=== PATIENT | female | born 1935 | race Caucasian/White ===

== ENCOUNTER → 2017-05-07 | Outpatient (CLI) | payer MEDICARE, BC ==
[~2017-05-07] MED LIST: /LABE20TA; /WARF25TA; ACET65TA; AMLO5TAB; DIOV160T5; LISI2.5T; MULTIVIT; PERC5TAB8; POTA10CA2; PRAV40TA; VITAMIN E; amlodipine; lisinopril
--- NOTE | 2017-05-07 15:21 | REP ---
LEFT FOOT, FOUR VIEWS: HISTORY: Sprain. There is no acute fracture or dislocation. There is narrowing of the tarsometatarsal , 1st metatarsophalangeal, 2nd through 5th intermediate and 1st through 5th distal interphalangeal joint spaces. Osteophytes are present on the inferior and posterior calcaneus. The bony structure is osteopenic. IMPRESSION: Degenerative change as described above. Signed by Albert Ingram MD 05/07/2017 03:22 P
== END ==
LOC: M WUC 10:56
PROVIDERS: ATTEND Physician Assistant
DX: S93.602A Unspecified sprain of left foot, initial encounter (principal); M85.872 Other specified disorders of bone density and structure, left ankle and foot; M19.072 Primary osteoarthritis, left ankle and foot; X58.XXXA Exposure to other specified factors, initial encounter; Y92.89 Other specified places as the place of occurrence of the external cause

== ENCOUNTER 2020-01-26 17:07 | Inpatient (IN) | payer MEDICARE, BC ==
[~2020-01-26] VITALS: Ht 162.6 cm; Wt 91.5 kg
[~2020-01-26 17:07] MED LIST changes: -/LABE20TA; -/WARF25TA; +COUM1TAB18; +LABE1TAB11
[2020-01-26] MEDS ORDERED: XARE20TA (17:42)
[2020-01-26] MEDS ORDERED: LOSA100T5 (17:42)
[2020-01-26] MEDS ORDERED: FURO20TA2 (17:42)
[2020-01-26 18:06] LABS: BASO # 0.1 10^3/uL (0.0-0.2); BASO % 0.7 % (0.0-1.0); EOS # 0.2 10^3/uL (0.0-0.5); EOS % 1.5 % (0.0-3.0); HEMATOCRIT 41.7 % (36.0-47.0); HEMOGLOBIN 13.7 g/dl (12.0-15.5); LYMPH # 1.3 10^3/uL (1.5-5.0); LYMPH % 11.4 % (24.0-44.0); MEAN CORPUSCULAR HGB CONC 32.9 g/dl (32.0-36.5); MEAN CORPUSCULAR VOLUME 88.2 fl (80.0-96.0); MONO # 1.1 10^3/uL (0.0-0.8); MONO % 9.4 % (0.0-5.0); NEUTROPHILS # 8.7 10^3/uL (1.5-8.5); NEUTROPHILS % 76.6 % (36.0-66.0); PLATELET COUNT, AUTOMATED 260 10^3/uL (150-450); RED BLOOD COUNT 4.73 10^6/uL (4.00-5.40); WHITE BLOOD COUNT 11.4 10^3/uL (4.0-10.0)
--- NOTE | 2020-01-26 18:23 | REP ---
Clinical: Cough and dyspnea. Comparison: 02/20/2015. Findings: Examination is limited by portable technique along with underpenetration and positioning. Mediastinum and cardiac silhouette are stable. Chronic interstitial changes versus interstitial edema along with bibasilar atelectasis/infiltrates suggested. No definite effusion. No pneumothorax. Skeletal structures stable with arthritic changes to the bilateral shoulders and thoracic spine noted. Impression: Chronic interstitial changes versus interstitial edema. Subtle bibasilar atelectasis/infiltrates suggested. Electronically Signed by Berlin Madera MD 01/26/2020 06:14 P
[2020-01-26 18:40] LABS: ALBUMIN 3.4 GM/DL (3.2-5.2); BILIRUBIN,DIRECT 0.5 MG/DL (0.0-0.2); BILIRUBIN,TOTAL 2.5 MG/DL (0.2-1.0); CALCIUM LEVEL 9.2 MG/DL (8.8-10.2); CK-MB VALUE MASS 2.3 NG/ML (<3.6); CREATININE FOR GFR 1.04 MG/DL (0.55-1.30); GLOMERULAR FILTRATION RATE 53.5 (>32); MB/CK RELATIVE INDEX 1.31 (< OR =4); POTASSIUM SERUM 3.9 MEQ/L (3.5-5.1); THYROID STIMULATING HORMONE 2.34 uIU/ML (0.358-3.740); TOTAL PROTEIN 6.7 GM/DL (6.4-8.2); TROPONIN I 0.02 NG/ML (< 0.10)
[2020-01-26] MEDS ORDERED: FUROSEMIDE 40MG/4ML VIAL (J1940) IV ONE (18:45)
[2020-01-26] MEDS ORDERED: ISOVUE-370 76% 100ML VIAL As Ordered ONE (18:49)
--- NOTE | 2020-01-26 19:25 | REPVR ---
PROCEDURE INFORMATION: Exam: CT Head Without Contrast Exam date and time: 01/26/2020 7:01 PM Age: 84 years old Clinical indication: Altered mental status/memory loss; Confusion or disorientation TECHNIQUE: Imaging protocol: Computed tomography of the head without contrast. Radiation optimization: All CT scans at this facility use at least one of these dose optimization techniques: automated exposure control; mA and/or kV adjustment per patient size (includes targeted exams where dose is matched to clinical indication); or iterative reconstruction. COMPARISON: No relevant prior studies available. FINDINGS: Brain: The brain demonstrates diffuse volume loss. There is white matter hypodensity most consistent with chronic small vessel ischemic change. No visible evolving territorial infarct. No hemorrhage. Ventricles: The ventricles appear mildly enlarged in keeping with volume loss. Bones/joints: Unremarkable. No acute fracture. Sinuses: Visualized sinuses are unremarkable. No fluid levels. Mastoid air cells: Visualized mastoid air cells are well aerated. Auditory system: There is material in the left external auditory canal which presumably represents cerumen. Orbits: Thinning of the lenses of the globes consistent with prior lens surgery. Soft tissues: Unremarkable. IMPRESSION: No acute intracranial abnormality seen. Electronically signed by: Wendy Ross On 01/26/2020 19:25:20 PM
--- NOTE | 2020-01-26 19:36 | REPVR ---
PROCEDURE INFORMATION: Exam: CT Angiography Chest With Contrast Exam date and time: 01/26/2020 7:01 PM Age: 84 years old Clinical indication: Shortness of breath; Additional info: SOB TECHNIQUE: Imaging protocol: Computed tomographic angiography of the chest with intravenous contrast. 3D rendering: MIP and/or 3D reconstructed images were created by the technologist. Radiation optimization: All CT scans at this facility use at least one of these dose optimization techniques: automated exposure control; mA and/or kV adjustment per patient size (includes targeted exams where dose is matched to clinical indication); or iterative reconstruction. Contrast material: ISOVUE 370; Contrast volume: 75 ml; Contrast route: IV; COMPARISON: CR PORTABLE CHEST X-RAY 01/26/2020 5:56 PM FINDINGS: Pulmonary arteries: Normal. No pulmonary emboli. Aorta: Unremarkable. No aortic aneurysm. No aortic dissection. Lungs: Subsegmental atelectasis noted in the right upper lobe and the right lower lobe subsegmental atelectasis present within the lingula. Mosaic perfusion abnormality noted in both lungs. Pleural space: There are small bilateral pleural effusions. Heart: There is coronary artery calcification. Mild cardiomegaly. No pericardial effusion. Gallbladder and bile ducts: There are large (up to 5 cm) lamellated gallstones are present within the gallbladder. Lymph nodes: Unremarkable. No enlarged lymph nodes. Bones/joints: Degenerative changes noted within the dorsal spine. Advanced degenerative changes of both glenohumeral joints. Soft tissues: There is eventration of the right hemidiaphragm . Stomach: There is a small sliding hiatal hernia. IMPRESSION: 1. No acute pulmonary embolism. 2. Bilateral subsegmental atelectasis with small bilateral pleural effusions. 3. Mosaic perfusion abnormality noted bilaterally. Differential diagnostic considerations include chronic veno-occlusive disease, bronchiolitis and air trapping. Clinical correlation needed. 4. Gallstones. Electronically signed by: Sakina Miranda On 01/26/2020 19:36:32 PM
--- NOTE | 2020-01-26 20:02 | REPVR ---
PROCEDURE INFORMATION: Exam: CT Abdomen And Pelvis With Contrast Exam date and time: 01/26/2020 7:13 PM Age: 84 years old Clinical indication: Abdominal pain; Generalized; Additional info: Abd pain TECHNIQUE: Imaging protocol: Computed tomography of the abdomen and pelvis with intravenous contrast. Radiation optimization: All CT scans at this facility use at least one of these dose optimization techniques: automated exposure control; mA and/or kV adjustment per patient size (includes targeted exams where dose is matched to clinical indication); or iterative reconstruction. Contrast material: ISOVUE 370; Contrast volume: 75 ml; Contrast route: IV; COMPARISON: No relevant prior studies available. FINDINGS: Motion artifact degrades image quality. Pleural space: There are small bilateral pleural effusions. Lungs: Hypoventilatory changes left lung base. Subsegmental atelectesis right lower lobe. Heart: There is mitral valvular calcification. Mediastinum: There is a small sliding hiatal hernia. Liver: Normal. No mass. Gallbladder and bile ducts: Large lamellated gallstones are present (maximum diameter = 5.2 cm) . Pancreas: Mild stranding peripancreatic fat.. Spleen: Normal. No splenomegaly. Adrenals: Normal. No mass. Kidneys and ureters: solid mass lower pole left kidney measuring 4.8 by 3 by 3.6 cm. Right kidney is malrotated. Stomach and bowel: There are sigmoid colonic diverticula. Appendix: Not well seen. Intraperitoneal space: Unremarkable. No free air. No significant fluid collection. Vasculature: There is coronary artery calcification. There is aortic annular and valvular calcification. Lymph nodes: Unremarkable. No enlarged lymph nodes. Bladder: Unremarkable as visualized. Reproductive: The uterus is absent. Bones/joints: Advanced degenerative disc disease within the thoracic and the lumbar spine. Underlying levoscoliosis of the lumbar spine. Soft tissues: Infraumbilical midline anterior abdominal wall hernia containing fat and small bowel loops. No signs of strangulation. There is mild stranding of the subcutaneous fat of the anterior abdominal wall. There is a midline abdominal wall incision. Well-circumscribed Rounded mass measuring 1.5 centimetres in the left labia majora could represent a chronic sebaceous cyst. Hyperdense rim suggests calcifications. Other findings: There is eventration of the right hemidiaphragm. IMPRESSION: 1. Motion artifact degrades image quality in the upper abdomen. 2. Mild stranding of peripancreatic fat. This could be related to motion. Pancreatitis is another consideration. Correlate with serum chemistries. 3. Left renal cell carcinoma. 4. Gallstones in the gallbladder. 5. Scattered sigmoid colonic diverticula. Six. Infraumbilical midline abdominal hernia could be incisional in nature. Small bowel loops and a small amount of ascites present within the hernia sac. No bowel obstruction. Electronically signed by: Sakina Miranda On 01/26/2020 20:02:39 PM
[2020-01-26] MEDS ORDERED: FURO20TA2 PO (20:57)
[2020-01-26] MEDS ORDERED: AMLO5TAB6 PO (20:57)
[2020-01-26] MEDS ORDERED: LABE200T32 PO (20:57)
[2020-01-26] MEDS ORDERED: LOSA100T5 PO (20:57)
[2020-01-26] MEDS ORDERED: POTA10TA14 PO (20:57)
[2020-01-26] MEDS ORDERED: XARE20TA PO (20:57)
[2020-01-26] MEDS: POTASSIUM CHLORIDE 10 MEQ SR TABLET PO SCH (22:25)
[2020-01-26] MEDS: RIVAROXABAN 20 MG TAB (XARELTO) PO SCH (22:29)
[2020-01-26] MEDS: LABETALOL 200 MG TAB PO SCH (22:29)
[2020-01-26 22:50] VITALS: BP 156/78
[2020-01-27] VITALS (17 sets, daily range): BP systolic 135–238; BP diastolic 60–92; O2SAT 86–93
[2020-01-27] MEDS: FUROSEMIDE 40MG/4ML VIAL (J1940) IV SCH ×3 (00:12→16:00)
--- NOTE | 2020-01-27 01:18 | ECGEPIP ---
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
[2020-01-27 06:39] LABS: TROPONIN I < 0.02 NG/ML (< 0.10)
--- NOTE | 2020-01-27 06:40 | HPEPDOC ---
[facility] Medical History & Physical Date of Admission Jan 26, 2020 Date of Service: Jan 26, 2020 History and Physical CHIEF COMPLAINT: Shortness breath and dyspnea on exertion for the last 3 weeks HISTORY OF PRESENT ILLNESS: This is a 84-year-old female presenting today for dyspnea on exertion and shortness of breath for the last 3 weeks. She was brought in via private vehicle with her son. She states for the last 3 weeks she's been increasing shortness of breath with daily tasks around the house. She's noticed increased lower extremity edema bilaterally in her legs which improves with elevation. She does note taking Lasix 3 times a week and has noticed a decrease in urine output in the last couple of weeks. She is unsure if she's had any weight gain. She admits to sleeping with one pillow at night but no paroxysmal nocturnal dyspnea or orthopnea. Patient states she is compliant with all her medications. She does endorse 24 hours prior to presentation she did have a presyncopal fall resulting in a head trauma with no loss of consciousness. She denies any headaches, vertigo, dizziness now or at the time of the episode. She does know feeling slightly woozy prior to landing on her knees and hitting her head She does endorse that she was unable to get up and had to scoot to her phone in the living room on the floor. She denies any nausea, vomiting, diarrhea. Endorses chronic constipation is relieved with [id number] stool softeners. She has no other complaints at this time. And the only reason she came to the ER was per the recommendation of her PCP after a telephone visit. PAST MEDICAL HISTORY: 1. Atrial fibrillation on anticoagulation currently rate controlled 2. Hypertension 3. Congestive heart failure 4. Chronic constipation HOME MEDICATIONS: Please see below. ALLERGIES: Please see below PAST SURGICAL HISTORY: 1. Hysterectomy 2. Knee arthroplasty on the right 3. 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 ETOH: Denies, Illicit drug use: Denies, CODE STATUS: DNR/DNI FAMILY HISTORY:Reviewed and noncontributory REVIEW OF SYSTEMS: 10 systems reviewed. Constitutional: Denies fever, chills, night sweats, Admits to weight loss HEENT: Denies headache, dysphagia endorses presyncopal lightheadedness episode 24 hours prior 1 Skin: Denies any rashes or lesions admits to bruising on the left lateral chest wall secondary to fall from yesterday. Denies any other skin breakdown sites. Pulmonary: Denies cough, wheezing . Endorses dyspnea on exertion Cardiac: Denies chest pain, palpitations, orthopnea, PND, admits to lower extremity edema GI: Denies nausea, vomiting, abdominal pain, diarrhea, melena, hematochezia endorses chronic constipation : Denies dysuria, hematuria, retention MSK: Denies new pains or weakness Neurologic: Denies new numbness/tingling PHYSICAL EXAMINATION: VITAL SIGNS: See below GENERAL: Pleasant 84 year old female sitting up in bed awake alert oriented speaking in 6-8 words complete sentences without no respiratory distress HEENT: Atraumatic, normocephalic, pupils equal round and reactive, moist mucous membranes, jugular vein not pronounced measure at 5 mm. CARDIOVASCULAR: Distant heart sounds no audible murmurs noted.S1-S2 sounds are present. Irregularly irregular rate controlled. On telemetry A. fib with rate of 60 bpm. CHEST: Healing bruise appreciated on left lateral chest wall. No hematoma. Mild discomfort with deep palpation. RESPIRATORY: Clear to auscultate in the upper lobes. Dullness to percussion bilaterally at the bases. Decreased tactile fremitus as well as diaphragmatic excursion. ABDOMINAL: Positive bowel sounds in all 4 quadrants. Soft obese abdomen. Tenderness to palpation. EXTREMITIES: 2+ pitting edema bilaterally in the lower extremities with tenderness. NEUROLOGICAL: no gross focal deficits appreciated. Alert and oriented 3 appropriate answering questions. PSYCHOLOGICAL: Appropriate LABORATORY DATA: See below. MICROBIOLOGY: Please see below. IMAGIN01/26/2020 Chest x-ray Impression: Chronic interstitial changes versus interstitial edema. Subtle bibasilar atelectasis/infiltrates suggested. Head CT IMPRESSION: No acute intracranial abnormality seen. CT angios the chest IMPRESSION: 1. No acute pulmonary embolism. 2. Bilateral subsegmental atelectasis with small bilateral pleural effusions. 3. Mosaic perfusion abnormality noted bilaterally. Differential diagnostic considerations include chronic veno-occlusive disease, bronchiolitis and air trapping. Clinical correlation needed. 4. Large Gallstones. Abdominal pelvic CT with contrast IMPRESSION: 1. Motion artifact degrades image quality in the upper abdomen. 2. Mild stranding of peripancreatic fat. This could be related to motion. Pancreatitis is another consideration. Correlate with serum chemistries. 3. Left renal cell carcinoma. 4. Gallstones in the gallbladder. 5. Scattered sigmoid colonic diverticula. 6. Infraumbilical midline abdominal hernia could be incisional in nature. Small bowel loops and a small amount of ascites present within the hernia sac. ASSESSMENT & PLAN: This is a 64-year-old female with a pertinent past medical history of atrial fibrillation rate controlled on anticoagulation, congestive heart failure, stenting in for shortness of breath and dyspnea on exertion for the last 3 weeks.. PROBLEMS: 1. Shortness of breath secondary to congestive heart failure exacerbation. States has a history of congestive heart failure. Sees Dr. Santamaria outpatient. Last echocardiogram was greater than 3 years ago. Clinically appears fluid overloaded with Dullness to percussion at the bases bilaterally, and 2+ pitting edema bilateral lower extremities. ProBNP elevated at 3197. Tolerated Lasix 40 mg 1 in ER very well. Ordered 40 mg Lasix every 8 hours, with net fluid of 2000cc IN 24 HOURS and 2.5L Fluids restriction. Monitor potassium and magnesium levels. Repeat echocardiogram today. EKG in the ER shows atrial fibrillation. No ST abnormalities. Trop 2 negative. 2. Control atrial fibrillation. Rate 65 bpm. ChadVacs Score: >2, continue with home Xarelto and labetalol as prescribed with hold parameters. 3. New Left renal cell carcinoma. Seen CT of the abdomen and pelvis.Patient does not have a history of carcinoma. Will need to have further workup with MRI with and without contrast for further evaluation. Need to consider urology consult following MRI for possible nephrectomy inpatient versus outpatient. 4. Large Cholelithiasis. Abnormal CT angios of the chest, which showed 5 cm lamellated gallstones while CT of the angiogram of the abdomen did show Mild stranding of peripancreatic fat. A nelson denies any right upper quadrant pain. Total bilirubin slightly elevated at 2.5 and direct bilirubin at 0.5. We'll tr end early levels. AST ALT levels are within normal limits. We'll monitor. If no complaints can continue to monitor and consider outpatient surgery referral for cholecystectomy 5. Presyncope resulting in a fall and on Xarelto. Denies loss of consciousness. CT of the head was negative for any acute intracranial processes. Orthostatics 1 ordered. Currently fluid overloaded and just of heart failure exacerbation so we'll monitor. PT OT ordered and advised to ambulate with assistance while admitted. No obvious neurological deficits noted on exam today. Monitor for mentation changes. 6. Hypertension. Continue with home amlodipine, hydrochlorothiazide, and losartan as prescribed with hold parameters. 7. Abnormal EKG. Q waves on v1-3. no st changes and normal tropx2. Patient states that she had a LCH 3 years prior which was negative. Echo ordered for problem 1. will see if there is wall motion abnormalities. 8. Obesity complicates care. DVT PROPHYLAXIS: Xarelto DISPOSITION: Admit to PCU with telemetry for at least 2 midnight. Vital Signs Vital Signs Date Time Temp Pulse Resp B/P (MAP) Pulse Ox O2 Delivery O2 Flow Rate FiO2 01/26/20 22:50 98.3 71 16 156/78 (104) 90 Nasal Cannula 2.0 Laboratory Data Labs 24H Laboratory Tests 2 01/26/20 17:52: Immature Granulocyte % (Auto) 0.4, Neutrophils (%) (Auto) 76.6H, Lymphocytes (%) (Auto) 11.4L, Monocytes (%) (Auto) 9.4H, Eosinophils (%) (Auto) 1.5, Basophils (%) (Auto) 0.7, Neutrophils # (Auto) 8.7H, Lymphocytes # (Auto) 1.3L, Monocytes # (Auto) 1.1H, Eosinophils # (Auto) 0.2, Basophils # (Auto) 0.1, Nucleated Red Blood Cells % (auto) 0.0, Anion Gap 7L, Glomerular Filtration Rate 53.5, Calcium Level 9.2, Magnesium Level 2.0, Total Bilirubin 2.5H, Direct Bilirubin 0.5H, Aspartate Amino Transf (AST/SGOT) 15, Alanine Aminotransferase (ALT/SGPT) 17, Alkaline Phosphatase 73, Total Creatine Kinase 176, Creatine Kinase MB 2.3, Creatine Kinase MB Relative Index 1.31, Troponin I 0.02, LL-Wes-X-Type Natriuretic Peptide 3197H, Total Protein 6.7, Albumin 3.4, Albumin/Globulin Ratio 1.03, Thyroid Stimulating Hormone (TSH) 2.340 01/26/20 19:46: Urine Color COLORLESS, Urine Appearance CLEAR, Urine pH 7.0, Urine Specific [place] 1.009, Urine Protein NEGATIVE, Urine Glucose (UA) NEGATIVE, Urine Ketones NEGATIVE, Urine Blood NEGATIVE, Urine Nitrite NEGATIVE, Urine Bilirubin NEGATIVE, Urine Urobilinogen 0.2, Urine Leukocyte Esterase NEGATIVE, Urine WBC (Auto) 0, Urine RBC (Auto) 0, Urine Hyaline Casts (Auto) 0, Urine Bacteria (Auto) 1+H, Urine Squamous Epithelial Cells 0, Urine Sperm (Auto) 01/27/20 00:01: Troponin I 0.02 CBC/BMP Laboratory Tests 01/26/20 17:52 Microbiology Microbiology 01/26/20 Blood Culture, Received Pending 01/26/20 Respiratory Virus Panel (PCR) (PENG) - Final, Complete 01/26/20 Blood Culture, Received Pending Home Medications Scheduled Amlodipine Besylate (Amlodipine Besylate) 5 Mg Tablet, 5 MG PO DAILY Furosemide (Furosemide) 20 Mg Tablet, 20 MG PO 3XW MON, WED, FRI Labetalol HCl (Labetalol HCl) 200 Mg Tablet, 400 MG PO BID Losartan/Hydrochlorothiazide (Losartan-Hctz 100-25 mg Tab) 1 Each Tablet, 1 TAB PO DAILY Potassium Chloride (Potassium Chloride) 10 Meq Tablet.er, 10 MEQ PO BID Rivaroxaban (Xarelto) 20 Mg Tablet, 20 MG PO QHS Allergies Coded Allergies: No Known Allergies (Unverified , 01/26/20) GME ATTESTATION GME ATTESTATION My faculty preceptor for this patient encounter was physically present during the encounter and was fully available. All aspects of the patient interview, examination, medical decision making process, and medical care plan development were reviewed and approved by the faculty preceptor. The faculty preceptor is aware and concurs with the plan as stated in the body of this note and will attest to such by his/her cosignature. ATTENDING NOTE I, Gabriel Parson, have independently examined this patient and performed my own physical exam, as well as reviewed the documentation and edited where necessary. I have discussed in detail with the resident / student the findings and plan of treatment as documented by the resident / student and edited their note. I agree with their findings and treatment plan and have edited their documentation. I will continue to follow the patient during this hospital stay. ZULMA LEMONS DO Jan 27, 2020 06:40 GABRIEL PARSON MD Jan 29, 2020 05:03
[2020-01-27 07:24] LABS: MAGNESIUM LEVEL 1.7 MG/DL (1.8-2.4)
[2020-01-27 07:29] LABS: HEMATOCRIT 40.6 % (36.0-47.0); HEMOGLOBIN 13.9 g/dl (12.0-15.5); MEAN CORPUSCULAR HEMOGLOBIN 29.9 pg (27.0-33.0); MEAN CORPUSCULAR HGB CONC 34.2 g/dl (32.0-36.5); MEAN CORPUSCULAR VOLUME 87.3 fl (80.0-96.0); PLATELET COUNT, AUTOMATED 284 10^3/uL (150-450); RED BLOOD COUNT 4.65 10^6/uL (4.00-5.40); WHITE BLOOD COUNT 12.5 10^3/uL (4.0-10.0)
[2020-01-27] MEDS: LABETALOL 200 MG TAB PO SCH ×2 (08:44→20:34)
[2020-01-27] MEDS: LOSARTAN 50 MG TAB PO SCH (08:45)
[2020-01-27] MEDS: POTASSIUM CHLORIDE 10 MEQ SR TABLET PO SCH ×2 (08:45→20:33)
[2020-01-27] MEDS: amLODIPine 5 MG TAB PO SCH (08:45)
[2020-01-27] MEDS: hydroCHLOROthiazide 25 MG TAB PO SCH (08:46)
[2020-01-27] MEDS: SENOKOT S TAB PO SCH (08:46)
[2020-01-27] MEDS ORDERED: MAG SULF 1GM/100ML (MAG RUN) 1 GM in IV 1 EA IV ONE (10:00)
[2020-01-27] MEDS ORDERED: PROHANCE 279.3MG/ML 15ML VIAL As Ordered ONE (11:38)
--- NOTE | 2020-01-27 14:15 | IPNPDOC ---
Text Note Date of Service The patient was seen on 01/27/20. NOTE Subjective: -Sitting up in chair, on supplemental O2 -Discussed CT findings of renal mass for which she has an MRI this afternoon -Feels better than she did yesterday, has been having lots of urine output since being started on diuretics VITAL SIGNS: See below GENERAL: Sitting up in bed awake alert oriented x 3, NAD HEENT: NCAT, PERRLA, EOMI, MMM CARDIOVASCULAR: Irregularly irregular rhythm, rate wnl TELEMETRY: A. fib with rate of 60 bpm. CHEST: Previously noted bruise appreciated on left lateral chest wall, mild pain with palpation. RESPIRATORY: Diminished bilateral bases, clear upper lobes, no wheezing or rhonchi ABDOMINAL: Normoactive bowel sounds, soft, obese, mild TTP throughout EXTREMITIES: 2+ pitting edema bilaterally in the lower extremities to knees. Non tender. WWP. NEUROLOGICAL: no gross focal deficits appreciated. Alert and oriented 3 appropriate answering questions. PSYCH: Appropriate, AOx3 LABORATORY DATA: Mag 1.7 na 133 K 3.9 Cr 1.04 WBC 12.5 Hgb 13.9 platelets 284 MICROBIOLOGY: Please see below. IMAGIN01/26/2020 Chest x-ray: Chronic interstitial changes versus interstitial edema. Subtle bibasilar atelectasis/infiltrates suggested. Head CT: No acute intracranial abnormality seen. Chest CTA: 1. No acute pulmonary embolism. 2. Bilateral subsegmental atelectasis with small bilateral pleural effusions. 3. Mosaic perfusion abnormality noted bilaterally. Differential diagnostic considerations include chronic veno-occlusive disease, bronchiolitis and air trapping. Clinical correlation needed. 4. Large Gallstones. Abdominal pelvic CT with contrast 1. Motion artifact degrades image quality in the upper abdomen. 2. Mild stranding of peripancreatic fat. This could be related to motion. Pancreatitis is another consideration. Correlate with serum chemistries. 3. Left renal cell carcinoma. 4. Gallstones in the gallbladder. 5. Scattered sigmoid colonic diverticula. 6. Infraumbilical midline abdominal hernia could be incisional in nature. Small bowel loops and a small amount of ascites present within the hernia sac. ASSESSMENT: 64-year-old W with atrial fibrillation on chronic rate control and anticoagulation, congestive heart failure unclear subtype, CAD s/p stenting now admitted with LOONEY of three weeks with evidence of volume overload. Plan Shortness of breath secondary to congestive heart failure exacerbation, unclear subtype at this time. - States has a history of congestive heart failure. Sees Dr. Santamaria outpatient. -Last echocardiogram was greater than 3 years ago. -Clinically appears fluid overloaded and has elevated proBNP at 3197. -Continue lasix every 8 hours, with net fluid of 2000cc IN 24 HOURS and 1.5L Fluids restriction. -Strict I/Os and daily weights -Monitor potassium and magnesium levels. -TTE pending. -EKG showed atrial fibrillation without ST abnormalities and trops were negative 2 Atrial fibrillation: Rate controlled -Rate 65 bpm. -continue with home Xarelto and labetalol as prescribed with hold parameters. Newly noted L renal mass, incidentally found on CT. -No history of renal CA --> admission team ordered MRI with and without contrast for further evaluation. -Will need urology referral Incidentally noted large Cholelithiasis: -Imaging showed 5 cm lamellated gallstones with stranding of peripancreatic fat, with total bilirubin slightly elevated at 2.5 and direct bilirubin at 0.5 and normal AST ALT levels. - Will monitor. - If no complaints can continue to monitor and consider outpatient surgery referral for cholecystectomy Presyncope resulting in a fall and on Xarelto. -Denies loss of consciousness. -CT of the head was negative for any acute intracranial processes. -Orthostatics were negative -No obvious neurological deficits noted on exam today -PT OT ordered Hypertension. -Continue with home amlodipine, hydrochlorothiazide, and losartan as prescribed with hold parameters. Abnormal EKG: Q waves on v1-[address] changes and normal tropx2. -Patient states that she had a LHC 3 years prior which was negative. -TTE pending for wall motion abnormalities. Obesity complicates care. DVT PROPHYLAXIS: Xarelto DISPOSITION: Admit to PCU with telemetry with ongoing IV diuresis VS,Fishbone, I+O VS, Fishbone, I+O Laboratory Tests 01/26/20 17:52 01/27/20 05:57 Vital Signs Date Time Temp Pulse Resp B/P (MAP) Pulse Ox O2 Delivery O2 Flow Rate FiO2 01/27/20 08:45 162/70 01/27/20 08:45 64 01/27/20 08:00 98.8 18 92 Nasal Cannula 2.0 I&O- Last 24 Hours up to 6 AM 01/27/20 05:59 Intake Total 0 ml Output Total 1850 ml Balance -1850 ml ANALILIA PHILIP MD Jan 27, 2020 09:20
--- NOTE | 2020-01-27 14:32 | REP ---
MRI KIDNEYS WITH AND WITHOUT CONTRAST: COMPARISON CT 01/26/2020. Multiple sequences obtained in the axial and coronal planes prior to and following the intravenous administration of 9 mL ProHance. In the lower pole of the left kidney, there is a heterogeneously enhancing solid mass which measures 4.5 x 3.2 x 3.0 cm consistent with renal cell carcinoma. No other renal mass is seen bilaterally. 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 There is no hydronephrosis bilaterally. I see no evidence of renal vein thrombosis. Abdominal aorta is normal in caliber. There is no periaortic adenopathy. No free fluid is seen in the visualized abdomen. Note is made of multiple gallstones filling the gallbladder, which does not appear to be inflamed. The visualized portions of the liver, spleen, adrenals, and pancreas are unremarkable. IMPRESSION: Solid heterogeneously enhancing mass lower pole left kidney most consistent with renal cell carcinoma measuring 4.5 x 3.2 x 3.0 cm. In the visualized abdomen, there is no evidence of lymphadenopathy. There is no evidence of renal vein thrombosis. No other renal mass is seen. Cholelithiasis. Electronically Signed by Tyler Beasley MD 01/27/2020 02:46 P
--- NOTE | 2020-01-27 19:36 | ECHO ---
DATE OF PROCEDURE: 01/27/2020 DATE OF : 1935 AGE: 84 REFERRING PROVIDER: Dr. Tri Joseph REASON FOR STUDY: Heart failure, unspecified. 2D MEASUREMENTS: IVS: 1.2 cm LV: 4.3 cm LVPW: 1.2 cm LA: 4.3 cm Aorta: 3.0 cm RV: 2.7 cm DOPPLER MEASUREMENTS: Peak velocity across the aortic valve: 1.5 meters second Peak velocity across the LVOT: 0.82 meters per second Mitral E: 1.5 Maximum tricuspid valve velocity: 4.0 meters per second. 2D COMMENTS: 1. Normal left ventricular size, wall thickness, and normal global left ventricular systolic function. The estimated left ventricular systolic ejection fraction is 60-65%. 2. Mildly enlarged left atrium. The right atrium appeared to be moderately enlarged. The right ventricle in limited views appeared to be mildly enlarged. The right ventricular free wall was not well visualized and may be hypokinetic. 3. The atrial septum appeared to be normal without evidence of defect or shunt. 4. Normal aortic root. 5. Trace pericardial effusion noted, no evidence of cardiac tamponade. 6. Mildly calcified aortic valve with normal leaflet excursion. Mildly calcified mitral annulus with normal anterior mitral valve leaflet motion. Normal tricuspid valve and pulmonic valve. The proximal pulmonary artery branches were not well visualized. 7. The inferior vena cava was dilated, central venous pressure might be elevated. DOPPLER: It detects trace aortic regurgitation, mild mitral regurgitation, moderate tricuspid regurgitation. The calculated pulmonary artery systolic pressure varies between 70 and 80 mmHg. Assessment of the left ventricular diastolic function was limited, the patient seems to have underlying atrial fibrillation. IMPRESSION: 1. Normal global left ventricular systolic function. Assessment of the left ventricular diastolic function was limited. 2. Aortic valve sclerosis with trace aortic regurgitation, but no aortic stenosis. 3. Mitral annulus calcification with mild mitral regurgitation and a mildly enlarged left atrium at 4.3 cm. 4. Moderate tricuspid regurgitation with severe pulmonary hypertension. The right heart chambers appeared to be enlarged. There is probably right ventricular systolic dysfunction. 5. There are features of elevated central venous pressure, the inferior vena cava was dilated. 6. Trace pericardial effusion. MTDD
[2020-01-27] MEDS: RIVAROXABAN 20 MG TAB (XARELTO) PO SCH (20:31)
[2020-01-28] VITALS (12 sets, daily range): BP systolic 112–168; BP diastolic 52–74; O2SAT 92–96
[2020-01-28] MEDS: FUROSEMIDE 40MG/4ML VIAL (J1940) IV SCH ×4 (00:13→23:30)
[2020-01-28 04:51] LABS: HEMATOCRIT 41.4 % (36.0-47.0); HEMOGLOBIN 13.9 g/dl (12.0-15.5); MEAN CORPUSCULAR HGB CONC 33.6 g/dl (32.0-36.5); MEAN CORPUSCULAR VOLUME 86.4 fl (80.0-96.0); PLATELET COUNT, AUTOMATED 276 10^3/uL (150-450); RED BLOOD COUNT 4.79 10^6/uL (4.00-5.40); WHITE BLOOD COUNT 11.8 10^3/uL (4.0-10.0)
[2020-01-28 05:31] LABS: ALBUMIN 3.3 GM/DL (3.2-5.2); BILIRUBIN,TOTAL 2.7 MG/DL (0.2-1.0); CREATININE FOR GFR 0.97 MG/DL (0.55-1.30); MAGNESIUM LEVEL 1.9 MG/DL (1.8-2.4); TOTAL PROTEIN 6.5 GM/DL (6.4-8.2)
[2020-01-28] MEDS ORDERED: POTASSIUM CHLORIDE 10 MEQ SR TABLET PO ONE ×3 (06:45→08:15)
[2020-01-28] MEDS: hydroCHLOROthiazide 25 MG TAB PO SCH (08:49)
[2020-01-28] MEDS: SENOKOT S TAB PO SCH (08:49)
[2020-01-28] MEDS: LOSARTAN 50 MG TAB PO SCH (08:49)
[2020-01-28] MEDS: amLODIPine 5 MG TAB PO SCH (08:49)
[2020-01-28] MEDS: LABETALOL 200 MG TAB PO SCH ×2 (08:51→20:17)
[2020-01-28] MEDS: POTASSIUM CHLORIDE 10 MEQ SR TABLET PO SCH ×2 (10:52→20:15)
[2020-01-28] MEDS ORDERED: SLF 3 ML SYR IV PRN (11:45)
--- NOTE | 2020-01-28 14:37 | IPNPDOC ---
Text Note Date of Service The patient was seen on 01/28/20. NOTE Subjective: -Sitting up in chair, on supplemental O2, now down to 2L -Discussed MRI findings of renal mass and told her that I will be calling urology today for their thoughts on inpatient evaluation vs. close follow up in the outpatient setting for discussion of further evaluation and treatment options -Feels ok, continues to have robust urine output. VITAL SIGNS: See below GENERAL: Sitting up in bed awake alert oriented x 3, NAD HEENT: NCAT, PERRLA, EOMI, MMM CARDIOVASCULAR: Irregularly irregular rhythm, rate wnl TELEMETRY: A. fib with rate of 60 bpm. RESPIRATORY: Continues to have diminished sounds at the bases with trace crackles, clear upper lobes, no wheezing or rhonchi ABDOMINAL: Normoactive bowel sounds, soft, obese, mild TTP throughout EXTREMITIES: 2+ pitting edema bilaterally in the lower extremities to midshins. Non tender. WWP. NEUROLOGICAL: no gross focal deficits appreciated. Alert and oriented 3 appropriate answering questions. PSYCH: Appropriate, AOx3 Labs: WBC11.8 Hgb 13.9 platelets 276 na 134 K 3 (repleted) Cr 0.97 mag 1.9 proBNP 3284 BCx - NGTD resp viral panel - negative TTE 1. Normal left ventricular size, wall thickness, and normal global left ventricular systolic function. The estimated left ventricular systolic ejection fraction is 60-65%. 2. Mildly enlarged left atrium. The right atrium appeared to be moderately enlarged. The right ventricle in limited views appeared to be mildly enlarged. The right ventricular free wall was not well visualized and may be hypokinetic. 3. The atrial septum appeared to be normal without evidence of defect or shunt. 4. Normal aortic root. 5. Trace pericardial effusion noted, no evidence of cardiac tamponade. 6. Mildly calcified aortic valve with normal leaflet excursion. Mildly calcified mitral annulus with normal anterior mitral valve leaflet motion. Normal tricuspid valve and pulmonic valve. The proximal pulmonary artery branches were not well visualized. 7. The inferior vena cava was dilated, central venous pressure might be elevated. DOPPLER: It detects trace aortic regurgitation, mild mitral regurgitation, moderate tricuspid regurgitation. The calculated pulmonary artery systolic pressure varies between 70 and 80 mmHg. Assessment of the left ventricular di astolic function was limited, the patient seems to have underlying atrial fibrillation. IMPRESSION: 1. Normal global left ventricular systolic function. Assessment of the left ventricular diastolic function was limited. 2. Aortic valve sclerosis with trace aortic regurgitation, but no aortic st enosis. 3. Mitral annulus calcification with mild mitral regurgitation and a mildly enlarged left atrium at 4.3 cm. 4. Moderate tricuspid regurgitation with severe pulmonary hypertension. The right heart chambers appeared to be enlarged. There is probably right ventricular systolic dysfunction. 5. There are features of elevated central venous pressure, the inferior venacava was dilated. 6. Trace pericardial effusion. MRI KIDNEYS WITH AND WITHOUT CONTRAST: COMPARISON CT 01/26/2020. In the lower pole of the left kidney, there is a heterogeneously enhancing solid mass which measures 4.5 x 3.2 x 3.0 cm consistent with renal cell carcinoma. No other renal mass is seen bilaterally. 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 There is no hydronephrosis bilaterally. I see no evidence of renal vein thrombosis. Abdominal aorta is normal in caliber. There is no periaortic adenopathy. No free fluid is seen in the visualized abdomen. Note is made of multiple gallstones filling the gallbladder, which does not appear to be inflamed. The visualized portions of the liver, spleen, adrenals, and pancreas are unremarkable. IMPRESSION: Solid heterogeneously enhancing mass lower pole left kidney most consistent with renal cell carcinoma measuring 4.5 x 3.2 x 3.0 cm. In the visualized abdomen, there is no evidence of lymphadenopathy. There is no evidence of renal vein thrombosis. No other renal mass is seen. Cholelithiasis. ASSESSMENT: 64-year-old W with atrial fibrillation on chronic rate control and anticoagulation, HFpEF, pulmonary hypertension, CAD s/p stenting now admitted with LOONEY of three weeks with evidence of volume overload. Plan Shortness of breath secondary to congestive heart failure exacerbation, with TTE showing preserved ejection fraction and significant pulmonary hypertension -Previously seen by Dr. Santamaria outpatient. -TTE as above, with preserved EF, significant pulm HTN and dilated RV with elevated CVP. -Clinically appears fluid overloaded and continues to have elevated proBNP -Continue lasix every 8 hours, with net fluid of 2000cc IN 24 HOURS and 1.5L Fluids restriction. -Strict I/Os and daily weights -Replete potassium and magnesium aggressively with ongoing diuresis -EKG showed atrial fibrillation without ST abnormalities and trops were negative 2 Chronic atrial fibrillation: Rate controlled -continue with home Xarelto and labetalol as prescribed with hold parameters. Newly noted L renal mass, incidentally found on CT. -No history of renal CA, mass on CT-->MRI showing solid mass c/f RCC --> Spoke with Dr. Seay in urology who will see her in clinic. Incidentally noted large Cholelithiasis: -Imaging showed 5 cm lamellated gallstones with stranding of peripancreatic fat, with total bilirubin stably elevated at 2.7 and direct bilirubin at 0.5 and normal AST ALT levels. - Will monitor. - No complaints, will continue to monitor and consider outpatient surgery referral for cholecystectomy Presyncope resulting in a fall and on Xarelto. -Denies loss of consciousness. -CT of the head was negative for any acute intracranial processes. -Orthostatics were negative -No obvious neurological deficits noted on exam today -with significant pulmonary HTN on TTE -PT OT ordered Hypertension. -Continue with home amlodipine, hydrochlorothiazide, and losartan as prescribed with hold parameters. -Also on labetalol with hold parameters Abnormal EKG: Q waves on v1-[address] changes and normal tropx2. -Patient states that she had a LHC 3 years prior which was negative. -TTE showing HFpEF with significant pulm HTN without WMA Obesity complicates care. DVT PROPHYLAXIS: Xarelto DISPOSITION: Ongoing diuresis in PCU with telemetry, still on supplemental O2, pending PT recs VS,Fishbone, I+O VS, Fishbone, I+O Laboratory Tests 01/28/20 04:31 Vital Signs Date Time Temp Pulse Resp B/P (MAP) Pulse Ox O2 Delivery O2 Flow Rate FiO2 01/28/20 06:00 96 Nasal Cannula 3.0 01/28/20 04:00 97.5 60 21 150/72 (98) I&O- Last 24 Hours up to 6 AM 01/28/20 06:00 Intake Total 700 ml Output Total 2450 ml Balance -1750 ml ANALILIA PHILIP MD Jan 28, 2020 07:46
[2020-01-28] MEDS: SLF 3 ML SYR IV SCH ×2 (16:03→20:15)
[2020-01-28] MEDS: RIVAROXABAN 20 MG TAB (XARELTO) PO SCH (20:15)
[2020-01-29] VITALS: BP 163/69
[2020-01-29 04:00] VITALS: BP 136/61
[2020-01-29] MEDS: SLF 3 ML SYR IV SCH ×3 (04:35→20:12)
[2020-01-29 05:11] LABS: HEMATOCRIT 41.8 % (36.0-47.0); HEMOGLOBIN 14.2 g/dl (12.0-15.5); MEAN CORPUSCULAR HEMOGLOBIN 29.8 pg (27.0-33.0); MEAN CORPUSCULAR VOLUME 87.8 fl (80.0-96.0); PLATELET COUNT, AUTOMATED 287 10^3/uL (150-450); RED BLOOD COUNT 4.76 10^6/uL (4.00-5.40); WHITE BLOOD COUNT 10.8 10^3/uL (4.0-10.0)
[2020-01-29 05:48] LABS: ALBUMIN 3.1 GM/DL (3.2-5.2); ALT/SGPT 21 U/L (12-78); BILIRUBIN,TOTAL 2.1 MG/DL (0.2-1.0); BLOOD UREA NITROGEN 20 MG/DL (7-18); CALCIUM LEVEL 8.8 MG/DL (8.8-10.2); CARBON DIOXIDE LEVEL 31 MEQ/L (21-32); CHLORIDE LEVEL 97 MEQ/L (98-107); CREATININE FOR GFR 0.94 MG/DL (0.55-1.30); GLOMERULAR FILTRATION RATE > 60.0 (>32); GLUCOSE, FASTING 104 MG/DL (70-100); MAGNESIUM LEVEL 1.8 MG/DL (1.8-2.4); POTASSIUM SERUM 2.9 MEQ/L (3.5-5.1); SODIUM LEVEL 136 MEQ/L (136-145); TOTAL PROTEIN 6.3 GM/DL (6.4-8.2)
[2020-01-29] MEDS ORDERED: POTASSIUM CHLORIDE 10 MEQ SR TABLET PO ONE (06:00)
[2020-01-29 08:00] VITALS: BP 150/70
[2020-01-29] MEDS: LABETALOL 200 MG TAB PO SCH ×2 (09:00→20:12)
[2020-01-29] MEDS: FUROSEMIDE 40MG/4ML VIAL (J1940) IV SCH (09:13)
[2020-01-29] MEDS: SENOKOT S TAB PO SCH (09:13)
[2020-01-29] MEDS: LOSARTAN 50 MG TAB PO SCH (09:14)
[2020-01-29] MEDS: hydroCHLOROthiazide 25 MG TAB PO SCH (09:14)
[2020-01-29] MEDS: POTASSIUM CHLORIDE 10 MEQ SR TABLET PO SCH ×2 (09:14→20:11)
[2020-01-29] MEDS: amLODIPine 5 MG TAB PO SCH (09:15)
--- NOTE | 2020-01-29 11:45 | IPNPDOC ---
Text Note Date of Service The patient was seen on 01/29/20. NOTE Subjective: -Sitting up in chair, on supplemental O2, however per nursing was saturating well on room air ambulating to the bathroom -Discussed that I spoke with urology and Dr. Seay will see her in the office for evaluation of her L renal mass -Otherwise no complaints at this time and continues to have robust urine output. VITAL SIGNS: See below GENERAL: Sitting up in chair, awake alert oriented x 3, NAD HEENT: NCAT, PERRLA, EOMI, MMM CARDIOVASCULAR: Irregularly irregular rhythm, rate wnl TELEMETRY: A. fib with rate of 60 bpm. RESPIRATORY: Continues to have diminished sounds at the bases with trace crackles, clear upper lobes, no wheezing or rhonchi ABDOMINAL: Normoactive bowel sounds, soft, obese, mild TTP throughout EXTREMITIES: 2+ pitting edema bilaterally in the lower extremities to midshins. Non tender. WWP. NEUROLOGICAL: no gross focal deficits appreciated. Alert and oriented 3 appropriate answering questions. PSYCH: Appropriate, AOx3 Labs: WBC 10.8 Hgb 14.2 platelets 287 na 136 K 2.9 (repleted) Cr 0.94 mag 1.8 BCx - NGTD resp viral panel - negative TTE 1. Normal left ventricular size, wall thickness, and normal global left ventricular systolic function. The estimated left ventricular systolic ejection fraction is 60-65%. 2. Mildly enlarged left atrium. The right atrium appeared to be moderately enlarged. The right ventricle in limited views appeared to be mildly enlarged. The right ventricular free wall was not well visualized and may be hypokinetic. 3. The atrial septum appeared to be normal without evidence of defect or shunt. 4. Normal aortic root. 5. Trace pericardial effusion noted, no evidence of cardiac tamponade. 6. Mildly calcified aortic valve with normal leaflet excursion. Mildly calcified mitral annulus with normal anterior mitral valve leaflet motion. Normal tricuspid valve and pulmonic valve. The proximal pulmonary artery branches were not well visualized. 7. The inferior vena cava was dilated, central venous pressure might be elevated. DOPPLER: It detects trace aortic regurgitation, mild mitral regurgitation, moderate tricuspid regurgitation. The calculated pulmonary artery systolic pressure varies between 70 and 80 mmHg. Assessment of the left ventricular diastolic function was limited, the patient seems to have underlying atrial fibrillation. IMPRESSION: 1. Normal global left ventricular systolic function. Assessment of the left ventricular diastolic function was limited. 2. Aortic valve sclerosis with trace aortic regurgitation, but no aortic stenosis. 3. Mitral annulus calcification with mild mitral regurgitation and a mildly enlarged left atrium at 4.3 cm. 4. Moderate tricuspid regurgitation with severe pulmonary hypertension. The right heart chambers appeared to be enlarged. There is probably right ventricular systolic dysfunction. 5. There are features of elevated central venous pressure, the inferior venacava was dilated. 6. Trace pericardial effusion. MRI KIDNEYS WITH AND WITHOUT CONTRAST: COMPARISON CT 01/26/2020. In the lower pole of the left kidney, there is a heterogeneously enhancing solid mass which measures 4.5 x 3.2 x 3.0 cm consistent with renal cell carcinoma. No other renal mass is seen bilaterally. 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 There is no hydronephrosis bilaterally. I see no evidence of renal vein thrombosis. Abdominal aorta is normal in caliber. There is no periaortic adenopathy. No free fluid is seen in the visualized abdomen. Note is made of multiple gallstones filling the gallbladder, which does not appear to be inflamed. The visualized portions of the liver, spleen, adrenals, and pancreas are unremarkable. IMPRESSION: Solid heterogeneously enhancing mass lower pole left kidney most consistent with renal cell carcinoma measuring 4.5 x 3.2 x 3.0 cm. In the visualized abdomen, there is no evidence of lymphadenopathy. There is no evidence of renal vein thrombosis. No other renal mass is seen. Cholelithiasis. ASSESSMENT: 64-year-old W with atrial fibrillation on chronic rate control and anticoagulation, HFpEF, pulmonary hypertension, CAD s/p PCI now admitted with LOONEY of three weeks with evidence of volume overload with steady improvement with ongoing IV diuresis. Plan Shortness of breath secondary to congestive heart failure exacerbation, with TTE showing preserved ejection fraction and significant pulmonary hypertension -Previously seen by Dr. Santamaria outpatient. -TTE as above, with preserved EF, significant pulm HTN and dilated RV with elevated CVP. -Clinically appears fluid overloaded and continues to have elevated proBNP -Discontinue lasix every 8 hours, will start 40 PO lasix daily starting tomorrow AM -goal net fluid of 2000cc IN 24 HOURS and 1.5L Fluids restriction. -Strict I/Os and daily weights -Replete potassium and magnesium aggressively with ongoing diuresis -EKG showed atrial fibrillation without ST abnormalities and trops were negative 2 -Hypoxemia is resolving --> if consistently on room air and saturating well with ambulation, may discharge home today Chronic atrial fibrillation: Rate controlled -continue with home Xarelto and labetalol as prescribed with hold parameters. Newly noted L renal mass, incidentally found on CT. -No history of renal CA, mass on CT-->MRI showing solid mass c/f RCC --> Spoke with Dr. Seay in urology who will see her in clinic Communicated this with her this AM. Incidentally noted large Cholelithiasis: -Imaging showed 5 cm lamellated gallstones with stranding of peripancreatic fat, with total bilirubin stably elevated at 2.7 and direct bilirubin at 0.5 and normal AST ALT levels. - Will monitor. - No complaints, will continue to monitor and consider outpatient surgery referral for cholecystectomy Presyncope resulting in a fall and on Xarelto. -Denies loss of consciousness. -CT of the head was negative for any acute intracranial processes. -Orthostatics were negative -No obvious neurological deficits noted on exam today -with significant pulmonary HTN on TTE -PT OT ordered Hypertension. -Continue with home amlodipine, hydrochlorothiazide, and losartan as prescribed with hold parameters. -Also on labetalol with hold parameters Abnormal EKG: Q waves on v1-[address] changes and normal tropx2. -Patient states that she had a LHC 3 years prior which was negative. -TTE showing HFpEF with significant pulm HTN without WMA Obesity complicates care. DVT PROPHYLAXIS: Xarelto DISPOSITION: Ongoing diuresis, trying to get her back to room air and if saturating well on room with ambulation, ,may end up discharging her home today after [facility] safety evaluation. VS,Fishbone, I+O VS, Fishbone, I+O Laboratory Tests 01/29/20 04:46 Vital Signs Date Time Temp Pulse Resp B/P (MAP) Pulse Ox O2 Delivery O2 Flow Rate FiO2 01/29/20 08:00 97.8 56 18 150/70 (96) 98 Nasal Cannula 2.0 I&O- Last 24 Hours up to 6 AM 01/29/20 06:00 Intake Total 570 ml Output Total 3650 ml Balance -3080 ml ANALILIA PHILIP MD Jan 29, 2020 09:18
[2020-01-29 12:00] VITALS: BP 129/58
[2020-01-29] MEDS ORDERED: FUROSEMIDE 40MG/4ML VIAL (J1940) IV ONE (15:00)
[2020-01-29 16:00] VITALS: BP 156/78
[2020-01-29 20:00] VITALS: BP 156/67
[2020-01-29] MEDS: RIVAROXABAN 20 MG TAB (XARELTO) PO SCH (20:12)
[2020-01-30] VITALS: BP 151/69
[2020-01-30 04:00] VITALS: BP 139/65
[2020-01-30 05:18] LABS: HEMATOCRIT 43.4 % (36.0-47.0); HEMOGLOBIN 14.2 g/dl (12.0-15.5); MEAN CORPUSCULAR HEMOGLOBIN 28.8 pg (27.0-33.0); MEAN CORPUSCULAR HGB CONC 32.7 g/dl (32.0-36.5); PLATELET COUNT, AUTOMATED 318 10^3/uL (150-450); RED BLOOD COUNT 4.93 10^6/uL (4.00-5.40); WHITE BLOOD COUNT 11.1 10^3/uL (4.0-10.0)
[2020-01-30 05:52] LABS: ALBUMIN 3.1 GM/DL (3.2-5.2); CALCIUM LEVEL 8.5 MG/DL (8.8-10.2); CREATININE FOR GFR 1.09 MG/DL (0.55-1.30); GLOMERULAR FILTRATION RATE 50.7 (>32); MAGNESIUM LEVEL 1.7 MG/DL (1.8-2.4); POTASSIUM SERUM 3.5 MEQ/L (3.5-5.1); TOTAL PROTEIN 6.3 GM/DL (6.4-8.2)
[2020-01-30] MEDS: SLF 3 ML SYR IV SCH (06:00)
[2020-01-30 08:26] VITALS: BP 156/70
[2020-01-30] MEDS ORDERED: FUROSEMIDE 40 MG TAB PO SCH (09:00)
[2020-01-30] MEDS: LABETALOL 200 MG TAB PO SCH (09:00)
[2020-01-30] MEDS ORDERED: FURO20TA2 PO (09:01)
[2020-01-30] MEDS ORDERED: LABE200T32 PO (09:01)
[2020-01-30 09:05] VITALS: BP 156/70
[2020-01-30] MEDS: POTASSIUM CHLORIDE 10 MEQ SR TABLET PO SCH (09:05)
[2020-01-30] MEDS: LOSARTAN 50 MG TAB PO SCH (09:05)
[2020-01-30] MEDS: SENOKOT S TAB PO SCH (09:06)
[2020-01-30] MEDS: amLODIPine 5 MG TAB PO SCH (09:06)
[2020-01-30] MEDS: hydroCHLOROthiazide 25 MG TAB PO SCH (09:06)
[2020-01-30] MEDS ORDERED: MIRA3350 PO (10:47)
--- NOTE | 2020-01-30 11:55 | DS.PDOC ---
Discharge Summary General Date of Admission Jan 26, 2020 at 21:07 Date of Discharge 01/30/2020 Attending Physician: ANALILIA PHILIP MD Discharge Summary PROCEDURES PERFORMED DURING STAY: None ADMITTING DIAGNOSES: 1. Acute on chronic HFpEF DISCHARGE DIAGNOSES: 1. Acute on chronic HFpEF 2. Chronic atrial fibrillation on anticoagulation currently rate controlled 3. Chronic essential hypertension COMPLICATIONS/CHIEF COMPLAINT: Short Of Breath. HISTORY OF PRESENT ILLNESS: 84-year-old W who presented to the ED with dyspnea on exertion and shortness of breath for 3 weeks, with associated increased lower extremity edema bilaterally in her legs. She reported having been compliant with her home Lasix 20 3 times a week and had noticed a decrease in urine output in the 2 weeks prior. She also reported presyncope with a fall 24 hours prior to presentation that resulted in head trauma with no loss of consciousness without any headaches, vertigo, dizziness. HOSPITAL COURSE: In the ED she was noted to be in javon volume overload with crackles and 2+ LE edema to the knees and hypoxemic requiring 3L of O2. She was admitted to the PCU for aggressive diuresis with IV lasix [id number] with a robust response and improvement in her volume status, weight loss and resolution of hypoxemia. Of note, EKG showed rate controlled Afib with ischemic signs and troponin was negative. A chest CTA revealed no acute PE and small bilateral pleural effusions. She had a TTE that showed her a preserved EF, significant pulm HTN and dilated RV with elevated CVP. Her crackles improved, LE significantly improved and her hypoxemia resolved. Her baseline diuretics were uptitrated from 20mg 3 times weekly to 40mg daily and she will have close PCP follow up for electrolytes check and volume check as well as cardiology follow up. Of note, while inpatient, she was incidentally found on CT imaging to have an asymptomatic large gallstone with normal LFTs, as well as newly noted L renal mass and had a follow up MRI that showed a solid L renal mass c/f RCC. I called urology who recommended following up with them in clinic for definitive diagnosis and discussion of management. Her renal function was otherwise wnl. With regard to her presyncopal fall, her CT head was wnl, orthostatics were negative and she had no neurological deficits noted. She cleared PT and passed a home safety check and is now being discharged home. Also of note, Ms. Jang was persistently rate controlled and borderline bradycardic such that her labetalol was held per hold parameters since 01/26. I have therefore reduced her dose from 400 BID to 200mg once daily to reduce risk of symptomatic bradycardia with close PCP and cardiology follow up. DISCHARGE MEDICATIONS: Please see below. ALLERGIES: Please see below. PHYSICAL EXAMINATION ON DISCHARGE: VITAL SIGNS: Please see below. GENERAL: Sitting up in chair, awake alert oriented x 3, NAD HEENT: NCAT, PERRLA, EOMI, MMM CARDIOVASCULAR: Irregularly irregular rhythm, rate wnl TELEMETRY: A. fib with rate of 60 bpm. RESPIRATORY: Continues to have diminished sounds at the bases with trace crackles, clear upper lobes, no wheezing or rhonchi ABDOMINAL: Normoactive bowel sounds, soft, obese, mild TTP throughout EXTREMITIES: 2+ pitting edema bilaterally in the lower extremities to midshins. Non tender. WWP. NEUROLOGICAL: no gross focal deficits appreciated. Alert and oriented 3 appropriate answering questions. PSYCH: Appropriate, AOx3 LABORATORY DATA: Please see below. IMAGING: No contrast head CT - no acute intracranial abnormality Chest CTA: 1. No acute pulmonary embolism. 2. Bilateral subsegmental atelectasis with small bilateral pleural effusions. 3. Mosaic perfusion abnormality noted bilaterally. Differential diagnostic considerations include chronic veno-occlusive disease, bronchiolitis and air trapping. Clinical correlation needed. 4. Gallstones. CT A/P with IV contrast: FINDINGS: Motion artifact degrades image quality. Pleural space: There are small bilateral pleural effusions. Lungs: Hypoventilatory changes left lung base. Subsegmental atelectesis right lower lobe. Heart: There is mitral valvular calcification. Mediastinum: There is a small sliding hiatal hernia. Liver: Normal. No mass. Gallbladder and bile ducts: Large lamellated gallstones are present (maximum diameter = 5.2 cm) . Pancreas: Mild stranding peripancreatic fat.. Spleen: Normal. No splenomegaly. Adrenals: Normal. No mass. Kidneys and ureters: solid mass lower pole left kidney measuring 4.8 by 3 by 3.6 cm. Right kidney is malrotated. Stomach and bowel: There are sigmoid colonic diverticula. Appendix: Not well seen. Intraperitoneal space: Unremarkable. No free air. No significant fluid collection. Vasculature: There is coronary artery calcification. There is aortic annular and valvular calcification. Lymph nodes: Unremarkable. No enlarged lymph nodes. Bladder: Unremarkable as visualized. Reproductive: The uterus is absent. Bones/joints: Advanced degenerative disc disease within the thoracic and the lumbar spine. Underlying levoscoliosis of the lumbar spine. Soft tissues: Infraumbilical midline anterior abdominal wall hernia containing fat and small bowel loops. No signs of strangulation. There is mild stranding of the subcutaneous fat of the anterior abdominal wall. There is a midline abdominal wall incision. Well-circumscribed Rounded mass measuring 1.5 centimetres in the left labia majora could represent a chronic sebaceous cyst. Hyperdense rim suggests calcifications. Other findings: There is eventration of the right hemidiaphragm. TTE 1. Normal left ventricular size, wall thickness, and normal global left ventricular systolic function. The estimated left ventricular systolic ejection fraction is 60-65%. 2. Mildly enlarged left atrium. The right atrium appeared to be moderately enlarged. The right ventricle in limited views appeared to be mildly enlarged. The right ventricular free wall was not well visualized and may be hypokinetic. 3. The atrial septum appeared to be normal without evidence of defect or shunt. 4. Normal aortic root. 5. Trace pericardial effusion noted, no evidence of cardiac tamponade. 6. Mildly calcified aortic valve with normal leaflet excursion. Mildly calcified mitral annulus with normal anterior mitral valve leaflet motion. Normal tricuspid valve and pulmonic valve. The proximal pulmonary artery branches were not well visualized. 7. The inferior vena cava was dilated, central venous pressure might be elevated. DOPPLER: It detects trace aortic regurgitation, mild mitral regurgitation, moderate tricuspid regurgitation. The calculated pulmonary artery systolic pressure varies between 70 and 80 mmHg. Assessment of the left ventricular diastolic function was limited, the patient seems to have underlying atrial fibrillation. IMPRESSION: 1. Normal global left ventricular systolic function. Assessment of the left ventricular diastolic function was limited. 2. Aortic valve sclerosis with trace aortic regurgitation, but no aortic stenosis. 3. Mitral annulus calcification with mild mitral regurgitation and a mildly enlarged left atrium at 4.3 cm. 4. Moderate tricuspid regurgitation with severe pulmonary hypertension. The right heart chambers appeared to be enlarged. There is probably right ventricular systolic dysfunction. 5. There are features of elevated central venous pressure, the inferior venacava was dilated. 6. Trace pericardial effusion. MRI KIDNEYS WITH AND WITHOUT CONTRAST: COMPARISON CT 01/26/2020. In the lower pole of the left kidney, there is a heterogeneously enhancing solid mass which measures 4.5 x 3.2 x 3.0 cm consistent with renal cell carcinoma. No other renal mass is seen bilaterally. 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 There is no hydronephrosis bilaterally. I see no evidence of renal vein thrombosis. Abdominal aorta is normal in caliber. There is no periaortic adenopathy. No free fluid is seen in the visualized abdomen. Note is made of multiple gallstones filling the gallbladder, which does not appear to be inflamed. The visualized portions of the liver, spleen, adrenals, and pancreas are unremarkable. IMPRESSION: Solid heterogeneously enhancing mass lower pole left kidney most consistent with renal cell carcinoma measuring 4.5 x 3.2 x 3.0 cm. In the visualized abdomen, there is no evidence of lymphadenopathy. There is no evidence of renal vein thr ombosis. No other renal mass is seen. Cholelithiasis. PROGNOSIS: Good with regard to HFpEF, with pending L renal mass evaluation ACTIVITY: As tolerated DIET: 2g sodium, 1.5L/24h fluid restriction DISCHARGE PLAN: Home with PCP and cardiology follow up, as well as urology referral DISPOSITION: home DISCHARGE INSTRUCTIONS: 1. Please start taking lasix 40mg daily. Followup with your PCP within the upcoming week and cardiology in 1-2 weeks. We are referring you for evaluation of the left renal mass by urology. ITEMS TO FOLLOWUP ON ON OUTPATIENT: 1. acute on chronic HFpEF 2. Le renal mass evaluation 3. Incidental asymptomatic large gallstone DISCHARGE CONDITION: Stable TIME SPENT ON DISCHARGE: 46 minutes. Vital Signs/I&Os Vital Signs Date Time Temp Pulse Resp B/P (MAP) Pulse Ox O2 Delivery O2 Flow Rate FiO2 01/30/20 08:26 97.3 60 17 156/70 (98) 91 01/30/20 04:00 Room Air 01/30/20 00:00 2.0 I&O- Last 24 Hours up to 6 AM 01/30/20 06:00 Intake Total 690 ml Output Total 2700 ml Balance -2010 ml Laboratory Data Labs 24H Laboratory Tests 2 01/30/20 04:35: Nucleated Red Blood Cells % (auto) 0.0, Anion Gap 8, Glomerular Filtration Rate 50.7, Calcium Level 8.5L, Magnesium Level 1.7L, Total Bilirubin 2.0H, Aspartate Amino Transf (AST/SGOT) 16, Alanine Aminotransferase (ALT/SGPT) 17, Alkaline Phosphatase 64, Total Protein 6.3L, Albumin 3.1L, Albumin/Globulin Ratio 0.97L CBC/BMP Laboratory Tests 01/30/20 04:35 Microbiology Microbiology 01/26/20 Blood Culture - Preliminary, Resulted No Growth after 72 hours. All specime... 01/26/20 Respiratory Virus Panel (PCR) (PENG) - Final, Complete 01/26/20 Blood Culture - Preliminary, Resulted No Growth after 72 hours. All specime... Discharge Medications Scheduled Amlodipine Besylate (Amlodipine Besylate) 5 Mg Tablet, 5 MG PO DAILY, (Reported) Furosemide (Furosemide) 20 Mg Tablet, 40 MG PO DAILY MON, WED, FRI Labetalol HCl (Labetalol HCl) 200 Mg Tablet, 200 MG PO DAILY Losartan/Hydrochlorothiazide (Losartan-Hctz 100-25 mg Tab) 1 Each Tablet, 1 TAB PO DAILY, (Reported) Polyethylene Glycol 3350 (Miralax) 119 Gm Powder, 17 GRAM PO DAILY for constipation dissolve in water Potassium Chloride (Potassium Chloride) 10 Meq Tablet.er, 10 MEQ PO BID, (Reported) Rivaroxaban (Xarelto) 20 Mg Tablet, 20 MG PO QHS, (Reported) Allergies Coded Allergies: No Known Allergies (Unverified , 01/26/20) ANALILIA PHILIP MD Jan 30, 2020 08:56
== END 2020-01-30 12:13 | disposition home or self-care (01) | DRG 292 ==
LOC: M ED 17:07 → M ED INP 21:07 → ENRESERV 21:37 → M PCU 22:50
PROVIDERS: ADMIT Internal Medicine; ATTEND Internal Medicine
DX: I11.0 Hypertensive heart disease with heart failure (principal); C64.2 Malignant neoplasm of left kidney, except renal pelvis; I48.20 Chronic atrial fibrillation, unspecified; I50.33 Acute on chronic diastolic (congestive) heart failure; K80.20 Calculus of gallbladder without cholecystitis without obstruction; Z79.01 Long term (current) use of anticoagulants; Z79.899 Other long term (current) drug therapy; K59.00 Constipation, unspecified; Z96.651 Presence of right artificial knee joint; E66.9 Obesity, unspecified

== ENCOUNTER 2021-03-20 18:06 | Emergency (ER) | payer MEDICARE, BC ==
[~2021-03-20 18:06] MED LIST changes: +AMLO1TAB24 PO; +FURO20TA2; +FURO20TA2 PO; +LABE200T32 PO; +LOSA100T5; +LOSA100T5 PO; +MIRA3350 PO; +POTA10TA14 PO; +XARE20TA; +XARE20TA PO
[2021-03-20] MEDS ORDERED: FURO40TA2 (18:18)
[2021-03-20] MEDS ORDERED: SPIR-10 (18:18)
--- NOTE | 2021-03-20 19:24 | REP ---
INDICATION: trauma COMPARISON: None. TECHNIQUE: Four views left shoulder. FINDINGS: There is a fracture of the neck of the humerus with mild displacement. Round 1.8 cm calcific body is seen along the fracture margin. Humeral head is in place in the glenoid fossa with moderate joint space narrowing and subchondral sclerosis. IMPRESSION: Displaced fracture neck of humerus. <Electronically signed by Tyler Beasley > 03/20/21 [id number]
--- NOTE | 2021-03-20 19:25 | REP ---
INDICATION: trauma COMPARISON: None. TECHNIQUE: AP and lateral left humerus. FINDINGS: There is a fracture of the neck of the humerus with mild displacement. Round 1.8 cm calcific body is seen along the fracture margin. Humeral head is in place in the glenoid fossa with moderate joint space narrowing and subchondral sclerosis. IMPRESSION: Displaced fracture neck of the humerus. <Electronically signed by Tyler Beasley > 03/20/21 192
--- NOTE | 2021-03-20 19:25 | REP ---
INDICATION: trauma COMPARISON: None. TECHNIQUE: Four views right knee. FINDINGS: There is no evidence of acute fracture, dislocation, or intrinsic bone disease.The prosthesis is in good position. IMPRESSION: No fracture or dislocation. <Electronically signed by Tyler Beasley > 03/20/211921
--- NOTE | 2021-03-20 19:39 | REPVR ---
PROCEDURE INFORMATION: Exam: CT Cervical Spine Without Contrast Exam date and time: 03/20/2021 6:45 PM Age: 85 years old Clinical indication: Injury or trauma; Fall; Blunt trauma TECHNIQUE: Imaging protocol: Computed tomography images of the cervical spine without contrast. Radiation optimization: All CT scans at this facility use at least one of these dose optimization techniques: automated exposure control; mA and/or kV adjustment per patient size (includes targeted exams where dose is matched to clinical indication); or iterative reconstruction. COMPARISON: No relevant prior studies available. FINDINGS: Bones/joints: Severe cervical facet arthropathy. There is slight grade 1 degenerative anterolisthesis of C2 on C3, C3 on C4 and C7 on T1. No acute fracture seen. Discs/Spinal canal/Neural foramina: Disc height loss and spondylosis from C3-C4 through C7-T1, in particular from C4-C5 through C6-C7. No severe central spinal canal stenosis. There are neural foraminal stenoses due to uncovertebral and facet arthropathy, in particular on the left at C3-C4. Severe degenerative changes at C1-C2. Lungs: Small visualized portion of the lung apices are unremarkable. Soft tissues: Unremarkable. IMPRESSION: 1. Limited study due to motion artifacts. 2. No obvious acute fracture. 3. If the patient is complaining of neck pain, recommend a repeat study. Electronically signed by: Wendy Ross On 03/20/2021 19:39:02 PM
--- NOTE | 2021-03-20 19:46 | REPVR ---
PROCEDURE INFORMATION: Exam: CT Head Without Contrast Exam date and time: 03/20/2021 6:45 PM Age: 85 years old Clinical indication: Injury or trauma; Fall; Blunt trauma (contusions or hematomas); Additional info: Trauma on thinners TECHNIQUE: Imaging protocol: Computed tomography of the head without contrast. Radiation optimization: All CT scans at this facility use at least one of these dose optimization techniques: automated exposure control; mA and/or kV adjustment per patient size (includes targeted exams where dose is matched to clinical indication); or iterative reconstruction. COMPARISON: CT Head without contrast 01/26/2020 6:56 PM FINDINGS: Brain: Images are slightly motion degraded. New anterior right parafalcine hyperdense subdural hemorrhage measures 2 mm in thickness. No mass effect. The brain demonstrates diffuse volume loss. There is white matter hypodensity most consistent with chronic small vessel ischemic change. No visible evolving territorial infarct. Cerebral ventricles: The ventricles are enlarged in keeping with volume loss. Paranasal sinuses: Visualized sinuses are unremarkable. No fluid levels. Mastoid air cells: Visualized mastoid air cells are well aerated. Orbital cavity: Thinning of the lenses of the globes consistent with prior lens surgery. Bones/joints: No acute calvarial fracture seen. Soft tissues: Left frontal scalp soft tissue swelling with hematoma. IMPRESSION: A trace amount of right anterior parafalcine subdural hemorrhage. Electronically signed by: Wendy Ross On 03/20/2021 19:46:02 PM
--- NOTE | 2021-03-20 19:51 | REPVR ---
PROCEDURE INFORMATION: Exam: CT Maxillofacial Without Contrast Exam date and time: 03/20/2021 6:45 PM Age: 85 years old Clinical indication: Injury or trauma; Fall; Blunt trauma (contusions or hematomas); Forehead TECHNIQUE: Imaging protocol: Computed tomography images of the face without contrast. Radiation optimization: All CT scans at this facility use at least one of these dose optimization techniques: automated exposure control; mA and/or kV adjustment per patient size (includes targeted exams where dose is matched to clinical indication); or iterative reconstruction. COMPARISON: CT Head without contrast 01/26/2020 6:56 PM FINDINGS: Orbital cavity: Thinning of the lenses of the globes consistent with prior lens surgery. No acute findings of the orbital contents. Bones/joints: No acute fracture. Paranasal sinuses: Focal left ethmoid opacity. No air-fluid levels. Soft tissues: Left frontal scalp soft tissue swelling with hematoma. IMPRESSION: No facial bone fracture seen. Electronically signed by: Wendy Ross On 03/20/2021 19:50:59 PM
[2021-03-20] MEDS ORDERED: ONDANSETRON 4MG/2ML VIAL IV ONE (20:15)
[2021-03-20] MEDS: MORPHINE 2 MG/ML 1ML VIAL (J2270) IV PRN ×2 (20:41→22:16)
[2021-03-20 21:01] LABS: HEMATOCRIT 42.7 % (36.0-47.0); HEMOGLOBIN 14.3 g/dl (12.0-15.5); MEAN CORPUSCULAR HEMOGLOBIN 29.2 pg (27.0-33.0); MEAN CORPUSCULAR HGB CONC 33.5 g/dl (32.0-36.5); MEAN CORPUSCULAR VOLUME 87.1 fl (80.0-96.0); PLATELET COUNT, AUTOMATED 370 10^3/uL (150-450); WHITE BLOOD COUNT 19.9 10^3/uL (4.0-10.0)
[2021-03-20 21:16] LABS: PARTIAL THROMBOPLASTIN TIME 42.5 SECONDS (24.2-38.5)
[2021-03-20 21:19] LABS: INR 1.53; PROTHROMBIN TIME 18.7 SECONDS (12.5-14.3)
[2021-03-20 21:22] LABS: CALCIUM LEVEL 9.4 MG/DL (8.8-10.2); CREATININE FOR GFR 1.05 MG/DL (0.55-1.30); GLOMERULAR FILTRATION RATE 52.8 (>32); POTASSIUM SERUM 4.6 MEQ/L (3.5-5.1)
[2021-03-20 21:57] LABS: RSV AMPLIFICATION NEGATIVE (NEGATIVE)
[2021-03-20 22:16] VITALS: BP 147/72
--- NOTE | 2021-03-21 08:13 | ECGEPIP ---
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
== END 2021-03-20 22:24 | disposition short-term general hospital (02) ==
LOC: M ED 18:06 → EDBD 18:06 → M ED 22:24
DX: S42.492A Other displaced fracture of lower end of left humerus, initial encounter for closed fracture (principal); S06.5X0A Traumatic subdural hemorrhage without loss of consciousness, initial encounter; W18.30XA Fall on same level, unspecified, initial encounter; Y92.512 Supermarket, store or market as the place of occurrence of the external cause; I11.0 Hypertensive heart disease with heart failure; I50.9 Heart failure, unspecified; I48.91 Unspecified atrial fibrillation; Z79.899 Other long term (current) drug therapy; Z79.01 Long term (current) use of anticoagulants
CPT/HCPCS: 70450; 70486; 72125; 73030; 73060; 73564; 80048; 85027; 85610; 85730; 86850; 86900; 86901; 87631; 93005; 93041; 94760; 96374; 96375; 96376; 99285; J2270; J2405

== ENCOUNTER → 2021-03-27 | Outpatient (REF) | payer MEDICARE, BC ==
[~2021-03-27] MED LIST changes: +FURO40TA2; +SPIR-10
[2021-03-27 17:13] LABS: CALCIUM LEVEL 9.1 MG/DL (8.8-10.2); CREATININE FOR GFR 1.03 MG/DL (0.55-1.30); POTASSIUM SERUM 5.2 MEQ/L (3.5-5.1)
== END ==
LOC: M SHH 15:55
PROVIDERS: ATTEND Nurse Practitioner Adult Health
DX: S06.5X0D Traumatic subdural hemorrhage without loss of consciousness, subsequent encounter (principal); W18.30XD Fall on same level, unspecified, subsequent encounter; Y92.009 Unspecified place in unspecified non-institutional (private) residence as the place of occurrence of the external cause

== ENCOUNTER → 2021-04-06 | Outpatient (CLI) | payer MEDICARE, BC ==
--- NOTE | 2021-04-06 11:14 | REPVR ---
PROCEDURE INFORMATION: Exam: CT Head Without Contrast Exam date and time: 04/06/2021 10:39 AM Age: 85 years old Clinical indication: Condition or disease; Other: RT subdural hemotoma f/u TECHNIQUE: Imaging protocol: Computed tomography of the head without contrast. Radiation optimization: All CT scans at this facility use at least one of these dose optimization techniques: automated exposure control; mA and/or kV adjustment per patient size (includes targeted exams where dose is matched to clinical indication); or iterative reconstruction. COMPARISON: CT Head without contrast 03/20/2021 6:40 PM FINDINGS: Brain: Previously apparent parafalcine subdural hemorrhage has resolved. There are small vessel ischemic changes within the periventricular and subcortical white matter. Cerebral ventricles: There is no new or progressive hemorrhage. Moderate diffuse volume loss is within the range of normal for patient age. Paranasal sinuses: Visualized sinuses are unremarkable. No fluid levels. Mastoid air cells: Visualized mastoid air cells are well aerated. Bones/joints: Unremarkable. No acute fracture. Soft tissues: There is residual left inferior frontal soft tissue injury, decreased. IMPRESSION: Interval resolution anterior parafalcine subdural hemorrhage. Electronically signed by: Leonora Gomez On 04/06/2021 11:14:29 AM
== END ==
LOC: M RAD 10:27
PROVIDERS: ATTEND Nurse Practitioner Adult Health
DX: S06.5X0D Traumatic subdural hemorrhage without loss of consciousness, subsequent encounter (principal)

== ENCOUNTER → 2021-05-05 | Outpatient (REF) | payer MEDICARE, BC ==
[2021-05-05 18:16] LABS: APPEARANCE, URINE HAZY (CLEAR); BACTERIA, URINE AUTO 1+ (NEGATIVE); BILIRUBIN, URINE AUTO NEGATIVE (NEGATIVE); BLOOD, URINE BLOOD NEGATIVE (NEGATIVE); COLOR, URINE STRAW (YELLOW); GLUCOSE, URINE (UA) AUTO NEGATIVE (NEGATIVE); KETONE, URINE AUTO NEGATIVE (NEGATIVE); LEUKOCYTE ESTERASE, URINE AUTO 3+ (NEGATIVE); NITRITE, URINE AUTO NEGATIVE (NEGATIVE); PROTEIN, URINE AUTO NEGATIVE (NEGATIVE); RBC, URINE AUTO 1 /HPF (0-3); SPECIFIC GRAVITY URINE AUTO 1.004 (1.002-1.035); SQUAMOUS EPITHELIAL CELL UR AU 4 /HPF (0-6); UROBILINOGEN, URINE AUTO 0.2 mg/dL (0.0-2.0); WBC, URINE AUTO 16 /HPF (0-3)
== END ==
LOC: M LAB REF 17:41
PROVIDERS: ATTEND Physician Assistant Medical
DX: N39.0 Urinary tract infection, site not specified (principal)

== ENCOUNTER → 2021-05-12 | Outpatient (REF) | payer MEDICARE, BC ==
[2021-05-12 12:55] LABS: APPEARANCE, URINE CLEAR (CLEAR); BACTERIA, URINE AUTO NEGATIVE (NEGATIVE); BILIRUBIN, URINE AUTO NEGATIVE (NEGATIVE); BLOOD, URINE BLOOD 1+ (NEGATIVE); COLOR, URINE STRAW (YELLOW); GLUCOSE, URINE (UA) AUTO NEGATIVE (NEGATIVE); KETONE, URINE AUTO NEGATIVE (NEGATIVE); LEUKOCYTE ESTERASE, URINE AUTO TRACE (NEGATIVE); MUCUS, URINE SMALL (NEGATIVE); NITRITE, URINE AUTO NEGATIVE (NEGATIVE); PROTEIN, URINE AUTO NEGATIVE (NEGATIVE); RBC, URINE AUTO 0 /HPF (0-3); SPECIFIC GRAVITY URINE AUTO 1.004 (1.002-1.035); SQUAMOUS EPITHELIAL CELL UR AU 1 /HPF (0-6); UROBILINOGEN, URINE AUTO 0.2 mg/dL (0.0-2.0); WBC, URINE AUTO 0 /HPF (0-3)
== END ==
LOC: M LAB REF 12:24
PROVIDERS: ATTEND Physician Assistant Medical
DX: R30.0 Dysuria (principal)

== ENCOUNTER → 2021-09-11 | Outpatient (CLI) | payer MEDICARE, BC ==
--- NOTE | 2021-09-11 15:22 | REP ---
INDICATION: RENAL MASS. COMPARISON: CT 08/16/2020. TECHNIQUE: Real-time sonographic evaluation of the kidneys is performed. FINDINGS: Renal cortical echogenicity pattern is normal bilaterally and contours are smooth. There is no hydronephrosis bilaterally. There is a solid mass of the lower pole of the left kidney again visualized measuring 6.0 x 3.5 x 3.8 cm. Prior measurements were 3.4 x 5.0 x 3.2 cm. The right kidney measures 11.0 x 5.2 x 4.8 cm. Left renal dimensions are 11.8 x 3.9 x 5.7 cm. The urinary bladder is empty. IMPRESSION: Solid mass lower pole left kidney has likely mildly increased in size as discussed above. <Electronically signed by Tyler Beasley > 09/11/21 [id number]
== END ==
LOC: M RAD 14:07
PROVIDERS: ATTEND Urology
DX: N28.89 Other specified disorders of kidney and ureter (principal)

== ENCOUNTER → 2022-09-18 | Outpatient (CLI) | payer MEDICARE, BC ==
[~2022-09-18] MED LIST changes: +ISOVUE-370 76% 100ML VIAL As Ordered ONE; -LABE200T32 PO; +LABE200T5 PO; -POTA10TA14 PO; +POTA1TAB24 PO
== END ==
LOC: M RAD 12:59
PROVIDERS: ATTEND Urology
DX: N28.89 Other specified disorders of kidney and ureter (principal)
CPT/HCPCS: 74170; Q9967